=== PATIENT | male | born 1980 | race Two or more races ===

== ENCOUNTER 2018-10-19 13:00 | Inpatient (IN) | payer OTHER ==
[~2018-10-19] VITALS: Ht 180.3 cm; Wt 106.6 kg
[2018-10-29] MEDS ORDERED: ZANTAC150 M3 PO (09:09)
[2018-10-29] MEDS ORDERED: MIRALAX17 GM PO (09:10)
[2018-10-29] MEDS ORDERED: TYLENOL EXTRA500 MG PO (09:11)
[2018-10-29] MEDS ORDERED: NEURONTIN300 MG PO (09:11)
[2018-10-29] MEDS ORDERED: TRAMADOL HCL50 MG PO (09:12)
== END 2018-10-29 09:46 | disposition home or self-care (01) | DRG 328 ==
LOC: O/R 10-27 05:53 → SURH 10-27 07:00 → SURG 10-27 13:10
PROVIDERS: ADMIT Surgery
PROC: 0BQT4ZZ Repair Diaphragm, Percutaneous Endoscopic Approach (ICD-10-PCS; 2018-10-27)
PROC: 0WJH4ZZ Inspection of Retroperitoneum, Percutaneous Endoscopic Approach (ICD-10-PCS; 2018-10-27)
PROC: 0D844ZZ Division of Esophagogastric Junction, Percutaneous Endoscopic Approach (ICD-10-PCS; principal; 2018-10-27 07:00)
PROC: 0DV44ZZ Restriction of Esophagogastric Junction, Percutaneous Endoscopic Approach (ICD-10-PCS; 2018-10-27 07:00)
PROC: BD11ZZZ Fluoroscopy of Esophagus (ICD-10-PCS; 2018-10-28)
DX: K22.0 Achalasia of cardia (principal); K44.9 Diaphragmatic hernia without obstruction or gangrene; E78.49 Other hyperlipidemia